=== PATIENT | female | born 1940 ===

== ENCOUNTER 2020-11-26 10:56 | Day surgery (SDC) | payer MEDICARE, OTHER ==
[2020-11-26] VITALS (8 sets, daily range): BP systolic 119–153; BP diastolic 59–78; PULSE 50–74; TEMP 97.6–98.7
[2020-11-26] MEDS ORDERED: LIPITOR 10MG10 MG PO (11:22)
[2020-11-26] MEDS ORDERED: EFFEXOR-XR150 MG PO (11:23)
[2020-11-26] MEDS ORDERED: NORVASC 5MG5 MG/TAB PO (11:23)
[2020-11-26] MEDS ORDERED: PYRIDIUM 100MG100 MG PO (13:56)
--- NOTE | 2020-11-26 14:45 | NUR ---
PATIENT TRANSPORTED PATIENT PER CART FROM PACU TO BAY 5 ACCOMPANIED BY COMMERCIAL INSURANCE UNDERWRITER. MONITORS APPLIED. VSS. PATIENT AMBULATED FROM CART TO RESTROOM AND VOIDS WITHOUT PROBLEMS. PATIENT AMBULATED BACK TO CART. IN ROOM
--- NOTE | 2020-11-26 14:53 | NUR ---
VSS ON ROOM AIR. PATIENT DENIES NAUSEA. PATIENT STATES SHE IS HAVING LOWER ABD DISCOMFORT. PATIENT ENCOURAGED TO EAT AND DRINK. PATIENT GIVEN APPLE JUICE AND NEYDA CRACKERS.
--- NOTE | 2020-11-26 15:00 | NUR ---
VSS ON ROOM AIR. DR SALEEM NOTIFIED OF PATIENT DISCOMFORT. ORDERS RECIEVED FOR ORAL PAIN MEDICATION. PATIENT INFORMED. WAITING FOR PHARMACY TO PROCESS ORDER.
--- NOTE | 2020-11-26 15:26 | NUR ---
VSS ON ROOM AIR. PATIENT AMBULATES TO RESTROOM AND VOIDS WITHOUT PROBLEMS. DOES HAVE SOME SEDIMENT IN URINE. PATIENT GIVEN PERCOCET PO ORDERED. PATIENT TAKES WITHOUT PROBLEMS. PATIENT NOW RESTING ON CART.
--- NOTE | 2020-11-26 15:56 | NUR ---
VSS ON ROOM AIR. PATIENT RESTING IN ROOM AND STATES FEELING ALITTLE BETTER.
--- NOTE | 2020-11-26 16:05 | NUR ---
VSS ON ROOM AIR. PATIENT STATES DISCOMFORT IS IMPROVING.
--- NOTE | 2020-11-26 16:25 | NUR ---
VSS ON ROOM AIR. IV SITE DC'D WITH CATHETER TIP INTACT. PRESSURE AND BANDAGE APPLIED. DISCHARGE INSTRUCTIONS GIVEN VERBAL AND DISCHARGE PACKET GIVEN TO PATIENT. PATIENT ALREADY HAS FOLLOW UP APPOINTMENT MADE. QUESTIONS ANSWERED AND PATIENT VOICED UNDERSTANDING. PATIENT CHANGES INTO STREET CLOTHES. 1630 PATIENT DISCHARGED PER WHEEL CHAIR ACCOMPANIED BY AMB RN TO PRIVATE VECHILE DRIVEN BY .
== END 2020-11-26 16:30 | disposition home or self-care (01) ==
LOC: SDCO 10:56
DX: D09.0 Carcinoma in situ of bladder (principal); R32 Unspecified urinary incontinence; R35.1 Nocturia; R39.15 Urgency of urination; N32.81 Overactive bladder; I10 Essential (primary) hypertension; E78.2 Mixed hyperlipidemia; F32.9 Major depressive disorder, single episode, unspecified; F17.210 Nicotine dependence, cigarettes, uncomplicated; Z79.02 Long term (current) use of antithrombotics/antiplatelets; Z79.899 Other long term (current) drug therapy
CPT/HCPCS: C1769; J0360; J0690; J1100; J2405; J2704; J3010; J7120

== ENCOUNTER 2021-04-29 11:14 | Day surgery (SDC) | payer MEDICARE, OTHER ==
[~2021-04-29] VITALS: Ht 165.1 cm; Wt 57.8 kg
[~2021-04-29 11:14] MED LIST: EFFEXOR-XR150 MG PO; LIPITOR 10MG10 MG PO; NORVASC 5MG5 MG/TAB PO; PYRIDIUM 100MG100 MG PO
--- NOTE | 2021-04-29 11:45 | NUR ---
PATIENT AMBULATED INTO SDC UNIT WITH STEADY GAIT. PATIENT IS ALERT AND ORIENTED X3. PATIENT HAS RIGHT ARM RESTRICTION. HISTORY DONE YESTERDAY. ASSESSMENT COMPLETED. LUNGS CTA. HEART S1S2, REGULAR. BOWEL SOUNDS HEARD. PULSES FELT. SEE PROCESS INTERVENTION FOR IV START.
[2021-04-29 12:01] VITALS: BP 156/88; PULSE 89; TEMP 97.9
--- NOTE | 2021-04-29 13:01 | NUR ---
Initial visit; Patient thanked Final Tester for offering prayer prior to her surgical procedure.
[2021-04-29 15:20] VITALS: BP 148/73; PULSE 77; TEMP 97.4
--- NOTE | 2021-04-29 15:20 | NUR ---
PATIENT TRANSPORTED PER CART FROM PACU TO BAY 6 ACCOMPANIED BY RN POSTPARTUM. MONITORS APPLIED. VSS ON ROOM AIR. PATIENT REQUESTED TOO AMBULATED TO RESTROOM. PATIENT IS UNSTEADY, AMBULATED 2 ASSIST TO RESTROOM AND VOIDS WITHOUT PROBLEMS. URINE IS ALITTLE BLOODY. PATIENT 2 ASSIST BACK TO CART. PATIENT DENIES DISCOMFORT AND NAUSESA. PATIENT GIVEN WATER AND CRACKERS.
[2021-04-29 15:30] VITALS: BP 133/66; PULSE 73
--- NOTE | 2021-04-29 15:30 | NUR ---
VSS ON ROOM AIR. PATIENT DRINKS COFFEE WITHOUT PROBLEMS. PATIENT GIVEN MUFFIN TO EAT. PATIENT DENIES DISCOMFORT.
[2021-04-29 15:45] VITALS: BP 116/64; PULSE 73
--- NOTE | 2021-04-29 15:45 | NUR ---
VSS ON ROOM AIR. PATIENT EATS MUFFIN WITHOUT PROBLEMS. PATIENT STATES DIZZINESS IS STILL THERE SLIGHT IMPROVED. DRINKS WITHOUT PROBLEMS.
[2021-04-29 16:00] VITALS: BP 116/62; PULSE 71
--- NOTE | 2021-04-29 16:00 | NUR ---
VSS ON ROOM AIR. PATIENT'S ARRIVED AND NOW IN ROOM AND TALKING WITH PATIENT. PATIENT STATES DIZZINESS IS SLIGHTLY IMPROVING.
[2021-04-29 16:15] VITALS: BP 106/61; PULSE 74
--- NOTE | 2021-04-29 16:15 | NUR ---
VSS ON ROOM AIR. PATIENT STATES SHE IS READY TO GO HOME. 1620 IV DC'D WITH CATHETER TIP INTACT. PRESSURE AND BANDAGE APPLIED. 1625 DISCHARGE INSTRUCTIONS GIVEN VERBAL AND DISCHARGE PACKET PROVIDED. QUESTIONS ANSWERED AND PATIENT VOICED UNDERSTANDING. HELPS PATIENT GET DRESSED. 1635 PATIENT DISCHARGED PER WHEEL CHAIR ACCOMPANIED BY AMB RN TO PRIVATE VECHILE DRIVEN BY .
== END 2021-04-29 16:35 | disposition home or self-care (01) ==
LOC: SDCO 11:14
DX: C67.9 Malignant neoplasm of bladder, unspecified (principal); I10 Essential (primary) hypertension; I65.29 Occlusion and stenosis of unspecified carotid artery; I48.91 Unspecified atrial fibrillation; E78.5 Hyperlipidemia, unspecified; E78.00 Pure hypercholesterolemia, unspecified; M19.90 Unspecified osteoarthritis, unspecified site; F17.210 Nicotine dependence, cigarettes, uncomplicated; F32.A Depression, unspecified; Z86.718 Personal history of other venous thrombosis and embolism; Z79.899 Other long term (current) drug therapy; Z86.73 Personal history of transient ischemic attack (TIA), and cerebral infarction without residual deficits; Z79.01 Long term (current) use of anticoagulants; Z85.3 Personal history of malignant neoplasm of breast; Z86.16 Personal history of COVID-19; Z90.89 Acquired absence of other organs; Z90.710 Acquired absence of both cervix and uterus; Z90.11 Acquired absence of right breast and nipple; Z79.02 Long term (current) use of antithrombotics/antiplatelets
CPT/HCPCS: J0360; J0690; J1100; J1170; J2175; J2405; J2704; J3010; J7120

== ENCOUNTER 2021-08-15 08:05 | Day surgery (SDC) | payer MEDICARE, OTHER ==
[~2021-08-15] VITALS: Ht 167.6 cm; Wt 57.3 kg
[2021-08-15] VITALS (8 sets, daily range): BP systolic 129–169; BP diastolic 58–95; PULSE 60–84; TEMP 97.3–98
[2021-08-15] MEDS ORDERED: COUMADIN 5MG5 MG/TAB PO (09:49)
[2021-08-15] MEDS ORDERED: CELEXA10 MG PO (09:50)
--- NOTE | 2021-08-15 10:00 | NUR ---
VLAD URENA IN ROOM TO START IV. 22G IV STARTED IN LEFT FOREARM WITH TOTAL OF 4 ATTEMPTS. INFUSING WITHOUT COMPLICATION. SITE FROM UNSUCCESSFULL ATTEMPT DEVELOPED HEMATOMA WHEN TORNIQUET PLACED FOR SECOND ATTEMPT. 4X4 GAZE AND COBAND APPLIED OVER SITE.
--- NOTE | 2021-08-15 11:08 | NUR ---
2099 DR. SANZ WAS CALLED. ERPORTED PT NOT UNDERSTANDING ENTIRE CONSENT AND NOT KNOWING SHE WAS STAYING OVER NIGHT. REPORTED EKG IN PROGRESS. DR WILL COME TO SPEAK WITH PT. ADMISSIONS CALLED TO SAY WAS ON HIS WAY TO WAITING ROOM. CHECKED WAITING AREA TWICE, UNABLE TO LOCATE . CALL PHONE, NO ANSWER.
--- NOTE | 2021-08-15 14:40 | NUR ---
patient arrived to room 342 at this time from OR, s/p TURBT, alert/oriented, vital signs stable, denies pain at this time, present, will continue to monitor
--- NOTE | 2021-08-15 15:34 | NUR ---
Notified by primary nurse that patient received chemotherapy 08/14/21. Patient confirmed that she received Keytruda at Dr. Garcia's office. Staff is to follow chemo precautions when handling urine or stool; ongoing.
--- NOTE | 2021-08-15 16:40 | NUR ---
patient continues to do well post operatively, vitals stable, started having some baldder cramping and gave tylenol and this seems to have helped some, she is resting quietly, tolerting PO intake well
--- NOTE | 2021-08-15 20:37 | NUR ---
PT IN BED, WANTING TO TAKE A WALK. TAKES SCHEDULED ES TYLENOL THEN GOES FOR WALK IN HALLWAY WITH STAFF. HAS FAM TO BSD WITH CBI AT SLOW RATE, URINE PINK. INT TO LEFT FOREARM. REMOVED DRSG FROM LEFT HAND FROM IV ATTEMPTS TODAY. LT HAND IS BRUISED, NOT SWOLLEN. PT REPORTS BEING A DIFFICULT STICK.
[2021-08-16 00:07] VITALS: BP 167/81; PULSE 63; TEMP 98
--- NOTE | 2021-08-16 00:15 | NUR ---
SPOKE WITH DR SANZ REGARDING PTS ELEVATED B/P. PT HOME MED NORVASC RESTARTED PER DOCTOR ORDER AT THIS TIME.
[2021-08-16 04:02] VITALS: BP 152/92; PULSE 74; TEMP 98.2
--- NOTE | 2021-08-16 04:12 | NUR ---
PT B/P MILDLY ELEVATED, HAD NORVASC 3 HRS AGO. TAKES ES TYLENOL AT THIS TIME, DENIES NEED FOR STRONGER PAIN MEDS. URINE PINK, CBI SLOW.
[2021-08-16 07:47] VITALS: BP 150/79; PULSE 67; TEMP 98
--- NOTE | 2021-08-16 08:38 | NUR ---
PATIENT ALERT AND ORIENTED X4. SITTING UP IN BED EATING BREAKFAST. HAS CBI GOING. FAM IN PLACE. TOOK PILLS WELL THIS MORNING. NO PAIN.
[2021-08-16 11:31] VITALS: BP 145/77; PULSE 82; TEMP 98.6
--- NOTE | 2021-08-16 12:44 | NUR ---
[employer] Spanish Teacher offered prayer and support with patient.
--- NOTE | 2021-08-16 13:19 | NUR ---
airport utility worker met with patient to discuss discharge plan. Patient lives at home in [place] with her Izaiah [phone]. She is independent with her ADL's and does not utilize any DME to assist with mobility. Patient has no home oxygen needs. PCP is Dr. Ya out of [place] and she utilizes [facility] in for medications with no cost difficulty. Patient reports that she does have a DPOA-HC established listing her daughter Anu Canales ([place])[phone] and her son Raghu Olivera ([place]) [phone]. Patient is planning on returning home with no concerns once medically ready. Discharge plan: Home
[2021-08-16 15:20] VITALS: BP 138/71; PULSE 74; TEMP 98.1
--- NOTE | 2021-08-19 12:00 | NUR ---
Report given to CARLTON hoyos.
== END 2021-08-16 16:04 | disposition home or self-care (01) ==
LOC: SDCO 08:05 → SURG 14:41 → SDCO 08-16 16:04
DX: C67.5 Malignant neoplasm of bladder neck (principal); D09.0 Carcinoma in situ of bladder; Z85.3 Personal history of malignant neoplasm of breast; Z86.16 Personal history of COVID-19; Z79.899 Other long term (current) drug therapy; Z87.891 Personal history of nicotine dependence
CPT/HCPCS: OP; J0690; J1100; J2405; J2704; J3010

== ENCOUNTER → 2022-06-16 | Outpatient (CLI) | payer MEDICARE, OTHER ==
[~2022-06-16] MED LIST changes: +CELEXA10 MG PO; +COUMADIN 5MG5 MG/TAB PO
== END ==
LOC: COL.RAD 08:16
DX: C67.9 Malignant neoplasm of bladder, unspecified (principal); H53.2 Diplopia; I72.3 Aneurysm of iliac artery; R90.82 White matter disease, unspecified
CPT/HCPCS: A9575

== ENCOUNTER 2023-12-10 12:23 | Day surgery (SDC) | payer MEDICARE, OTHER ==
[~2023-12-10] VITALS: Ht 165.1 cm; Wt 62.2 kg
[2023-12-10] VITALS (10 sets, daily range): BP systolic 125–160; BP diastolic 67–87; PULSE 55–89; TEMP 97.7–98.3
[~2023-12-10 12:23] MED LIST changes: +LR 1,000 ML IV SCH
[2023-12-10] MEDS ORDERED: fentaNYL 50 MCG/ML 2 ML VIAL ONE (13:39)
[2023-12-10] MEDS ORDERED: Glycopyrrolate 0.2 MG/ML 1 ML VIAL ONE (13:40)
[2023-12-10] MEDS ORDERED: dexAMETHasone 10 MG/ML VIAL ONE (13:40)
[2023-12-10] MEDS ORDERED: NS 10 ML IV ONE (13:40)
[2023-12-10] MEDS ORDERED: Lidocaine PF 2% (20 MG/ML) 5 ML VIAL ONE (13:40)
[2023-12-10] MEDS ORDERED: Ondansetron 4 MG/2 ML VIAL ONE (13:40)
[2023-12-10] MEDS ORDERED: Lidocaine 2% (20 MG/ML) 20 ML UROJET UR ONE (14:00)
[2023-12-10] MEDS ORDERED: ARICEPT10 MG PO (14:14)
[2023-12-10] MEDS ORDERED: Ondansetron 4 MG/2 ML VIAL IV PRN ×2 (15:30→16:15)
[2023-12-10] MEDS ORDERED: Morphine 2 MG/1 ML VIAL [PACU/SDC ONLY] IV PRN (15:30)
[2023-12-10] MEDS ORDERED: Meperidine 50 MG/ML 1 ML VIAL IV PRN (15:30)
[2023-12-10] MEDS ORDERED: HYDROmorphone 1 MG/1 ML SYRINGE [PACU/SDC ONLY] IV PRN (15:30)
[2023-12-10] MEDS ORDERED: Magnes Hydrox (MOM) 80 MG/ML 30 ML CUP PO PRN (16:15)
[2023-12-10] MEDS ORDERED: Hyoscyamine 0.125 MG Sublingual TAB SL PRN (16:15)
[2023-12-10] MEDS ORDERED: Naloxone 0.4 MG/ML VIAL IV PRN (16:15)
[2023-12-10] MEDS ORDERED: NS Irrig Soln 3000 ML SOLN IR PRN (16:15)
--- NOTE | 2023-12-10 16:35 | NUR ---
PATIENT ADMITED INTO ROOM 324 FROM OR. ORIENTED X2-3, REPORTS HX OF MILD DEMENTIA. DROWSY POST OP. VSS. NO C/O PAIN OR NAUSEA. IV FLUIDS INFUSING INTO LEFT HAND IV. CLEAR LIQUID DIET, LIQUIDS AT BEDSIDE. FAM TO DD WITH MOD AMOUNTS OF CLEAR PINK URINE, CBI INFUSING AT MOD RATE. HEAD TO TOE ASSESSMENT COMPLETE, SEE SKIN ISSUES. PATIENT REPORTS SHE HAS DNR PAPERWORK AT HOME AND PACU NURSE ASKED IF HE COULD BRING THEM WHEN HE COMES BACK. ORIENTED TO ROOM. CALL LIGHT IN REACH. BED ALARM ON.
[2023-12-10] MEDS ORDERED: Atorvastatin 10 MG TAB PO SCH (21:00)
[2023-12-10] MEDS ORDERED: Melatonin 3 MG TAB PO PRN (21:00)
[2023-12-10] MEDS ORDERED: amLODIPine 5 MG TAB PO SCH (21:00)
[2023-12-10] MEDS ORDERED: Docusate Sodium 100 MG CAP PO SCH (21:00)
[2023-12-10] MEDS ORDERED: Donepezil 5 MG TAB PO SCH (21:00)
[2023-12-10] MEDS ORDERED: Nystatin 100,000 Units/GM Ointment 15 GM TUBE TP SCH (21:53)
[2023-12-10] MEDS ORDERED: diphenhydrAMINE 25 MG CAP PO PRN (22:00)
[2023-12-11] VITALS (11 sets, daily range): BP systolic 125–157; BP diastolic 68–78; PULSE 56–78; TEMP 97.3–98.9
--- NOTE | 2023-12-11 08:00 | NUR ---
PATIENT IS A&O X2-3, HX OF DEMENTIA. VSS. NO COMPLAINTS. PATIENT TALKING ABOUT GOING HOME TODAY. FAM TO DD WITH MOD AMOUNTS OF PINK URINE WITH SEDIMENT, CBI INFUSING AT SLOW RATE. IV FLUIDS INFUSING VIA PUMP INTO LEFT FORARM IV. PLAN IS TO P&P AND START 6 CUP TODAY, IF PATIENT DOES WELL WITH VOIDING TRIAL SHE SHOULD DISCHARGE HOME WITH . SEE UROLOGY ORDERS. HEAD TO TOE ASSESSMENT COMPLETE. AM MEDS GIVEN. CALL LIGHT IN REACH. BED ALARM ON. PATIENT REPORTS FREQUENT FALLS AT HOME.
[2023-12-11] MEDS ORDERED: 1/2 NS & 20 mEq KCl 1,000 ML IV SCH (09:00)
--- NOTE | 2023-12-11 11:00 | NUR ---
P&P FAM PER UROLOGY ORDERS. NOTED FAM LEAKING AT SITE DURING PRIMING. FAM CATH TIP INTACT. PATIENT STARTED ON 6 CUP ROUTINE. PATIENT ASSISTED TO BATHROOM TO TRY AND VOID. IV TO INT. TOLERATED BREAKFAST WELL. NO C/O N/V. PATIENT REPORTS HER WILL BE HERE SOON.
--- NOTE | 2023-12-11 12:00 | NUR ---
PATIENT UNABLE TO VOID SINCE FAM REMOVED. ENCOURAGED FLUIDS. NOW AT BEDSIDE.
--- NOTE | 2023-12-11 13:11 | NUR ---
Data: Patient accepted spiritual care visit offered during Rockboard Lather rounds. Patient life review, specifically around her high school reunion. Rockboard Lather received a call and left for a short time, but returned to complete visit. Patient's arrived for visit. Patient hopes to be discharged today. Assessment: Patient is hopeful and grateful. Patient processed feelings/requried tasks surrounding the reunion. Plan of Care: Rockboard Lather provided supportive listening and prayer. Patient thanked Rockboard Lather for the visit. Chaplains will remain available as needed/required while Patient is admitted to this hospital.
--- NOTE | 2023-12-11 14:00 | NUR ---
PATIENT HAS NOW VOIDED X1 POST FAM REMOVAL BUT WAS INCONTIENT ON BED PAD. URINE WAS YELLOW, NO CLOTS NOTED AND APPEARS TO BE A MOD AMOUNT. ENCOURAGED FLUIDS AND TO CALL FOR BATHROOM. AT BEDSIDE.
--- NOTE | 2023-12-11 14:08 | NUR ---
SW met with patient to complete intake and discuss discharge planning, her (Izaiah Olivera [phone]) was present and permitted to remain in room during intake by patient. Patient shared that they reside in [place] and that her PCP is Dr Ya in [place] and her pharmacy of choice is [facility] in [place]. Patient communicated that she is fairly independent with ADLs she shared her spouse and having a walk-in shower assist her greatly. Patient reports only walker as her current DME. Patient reports that she does have DPOA on file at their residence. Patient is anticipating to discharge back to her home with .
--- NOTE | 2023-12-11 19:00 | NUR ---
PATIENT WAS INCONTINENT FOR THE 2ND TIME SINCE FAM CAME OUT THIS AM. NOTED SMALL YELLOW URINE SPOT ON BED PAD. POST INCONTINENT VOID BLADDER SCAN WAS 31CC. PATIENT ENCOURAGED TO FORCE FLUIDS BUT JUST DOESN'T TAKE IN MUCH. PATIENT BACK ON IV FLUIDS THROUGH THE NIGHT. STARTED 22 GAUGE IV INTO LEFT HAND. DIAL LATHE OPERATOR TAKING OVER.
[2023-12-11] MEDS ORDERED: Acetaminophen 500 MG TAB PO PRN (19:15)
[2023-12-12] VITALS: BP 165/77; PULSE 68; TEMP 98.8
[2023-12-12 00:02] VITALS: BP_SYST 165
[2023-12-12 03:48] VITALS: BP 164/78; PULSE 72; TEMP 97.9
[2023-12-12 04:23] VITALS: BP_SYST 164
--- NOTE | 2023-12-12 06:32 | NUR ---
PT HAS HAD SEVERAL INCONTINENT EPISODES THIS SHIFT AND HAS BEEN UP TO RESTROOM WITH ASSIST X1. IV TO INT. TAKING PO WELL. NYSTATIN AND BARRIER CREAM TO RASH ON GROIN/ABD/LABIA.
[2023-12-12 07:54] VITALS: BP 168/81; PULSE 73; TEMP 98
--- NOTE | 2023-12-12 08:00 | NUR ---
PATIENT IS A&O X2-3, HX OF UNDERLINED DEMENTIA. VSS. NO COMPLAINTS. SHRINK PIT OPERATOR REPORTS PATIENT WAS INCONTINENT OF URINE MULTIPLE TIMES OVER NIGHT, WHICH IS BASELINE FOR HER, BRIEF ON. PATIENT WILL DISCHARGE HOME TODAY NOW THAT IS IS VOIDING. HEAD TO TOE WNL. AM MEDS GIVEN. NO OTHER NEEDS AT THIS TIME. CALL LIGHT IN REACH. BED ALARM ON. WILL BE HERE TO PICK HER UP LATER THIS AM.
--- NOTE | 2023-12-12 10:19 | NUR ---
social worker masters was informed by district representative that pt is a likely discharge. No needs. Discharge Plan: home
--- NOTE | 2023-12-12 11:20 | NUR ---
PATIENT DISCHARGING HOME VIA WC TO PERSONAL VEHICLE WITH . GAVE DISCHARGE INSTRUCTIONS AND DISCUSSED F/U. ANSWERED QUESTIONS/CONCERNS. DC'D IV SITE AND COVERED SITE WITH GAUZE & COBAN. PATIENT NOW VOIDING, INCONTINENT WHICH IS BASELINE FOR HER, BRIEFS ON. PATIENT IS DRESSED, PACKED & DISCHARGED.
== END 2023-12-12 11:20 | disposition home or self-care (01) ==
LOC: SDCO 12:23 → SURG 16:35 → SDCO 12-12 11:20
DX: C67.5 Malignant neoplasm of bladder neck (principal); F17.210 Nicotine dependence, cigarettes, uncomplicated; Z85.3 Personal history of malignant neoplasm of breast; Z85.42 Personal history of malignant neoplasm of other parts of uterus; Z85.41 Personal history of malignant neoplasm of cervix uteri
CPT/HCPCS: OP; J0690; J1100; J1920; J2405; J2704; J3010; J3480; J7120